=== PATIENT | female | born 1975 | race Caucasian/White ===

== ENCOUNTER → 2018-05-02 15:00 | Outpatient (CLI) | payer OTHER, SELFPAY | DX: Z23 Encounter for immunization (principal) | CPT/HCPCS: 90471; 90686 ==

== ENCOUNTER → 2018-08-30 18:10 | Outpatient (REF) | payer OTHER, SELFPAY | LOC: LAB 18:10 | PROVIDERS: PCP Obstetrics & Gynecology; Visit Provider Otolaryngology | DX: H66.001 Acute suppurative otitis media without spontaneous rupture of ear drum, right ear (principal) | CPT/HCPCS: 87070; 87077; 87147; 87186; 87205 ==

== ENCOUNTER → 2019-05-24 10:15 | Outpatient (CLI) | payer OTHER, SELFPAY | PROVIDERS: PCP Obstetrics & Gynecology | DX: Z23 Encounter for immunization (principal) | CPT/HCPCS: 90471; 90686 ==

== ENCOUNTER → 2020-06-18 | Outpatient (CLI) | payer OTHER, SELFPAY | PROVIDERS: PCP Obstetrics & Gynecology; Referring Provider Internal Medicine; Visit Provider Internal Medicine | DX: Z23 Encounter for immunization (principal) | CPT/HCPCS: 90471; 90686 ==

== ENCOUNTER → 2020-07-11 11:14 | Outpatient (CLI) | payer OTHER, SELFPAY ==
[2020-07-11 11:39] LABS: COVID19 -Nasal RAPID Negative (Negative)
== END ==
PROVIDERS: PCP Obstetrics & Gynecology; Visit Provider Physician Assistant
DX: Z11.59 Encounter for screening for other viral diseases (principal)
CPT/HCPCS: 87635

== ENCOUNTER → 2020-07-17 15:51 | Outpatient (CLI) | payer OTHER, SELFPAY ==
[2020-07-17 16:26] LABS: COVID19 -Nasal RAPID Negative (Negative)
== END ==
PROVIDERS: PCP Obstetrics & Gynecology; Visit Provider Physician Assistant
DX: Z11.59 Encounter for screening for other viral diseases (principal)
CPT/HCPCS: 87635

== ENCOUNTER → 2020-10-04 15:45 | Outpatient (CLI) | payer OTHER, SELFPAY ==
[2020-10-04] MEDS: COVID-19 VACC #1, MRNA(MOD) 100 MCG/0.5 ML VIAL IM (15:57)
== END ==
PROVIDERS: PCP Obstetrics & Gynecology; Visit Provider Internal Medicine
DX: Z23 Encounter for immunization (principal)
CPT/HCPCS: 0011A; 91301

== ENCOUNTER → 2020-11-01 11:01 | Outpatient (CLI) | payer OTHER, SELFPAY ==
[2020-11-01] MEDS: COVID-19 VACC #2, MRNA(MOD) 100 MCG/0.5 ML VIAL IM (11:06)
== END ==
PROVIDERS: PCP Obstetrics & Gynecology; Visit Provider Internal Medicine
DX: Z23 Encounter for immunization (principal)
CPT/HCPCS: 0012A; 91301

== ENCOUNTER → 2021-06-17 16:09 | Outpatient (CLI) | payer OTHER, SELFPAY ==
--- NOTE | 2021-06-17 | DI.MG.S_ITS ---
BILATERAL DIGITAL SCREENING MAMMOGRAM 3D/2D WITH CAD: 06/17/2021 Comparison is made to exams dated: 11/25/2018 mammogram, 11/18/2018 mammogram, and 09/10/2014 mammogram - outside location. There are scattered fibroglandular elements in both breasts. Current study was also evaluated with a Computer Aided Detection (CAD) system. No significant masses, calcifications, or other findings are seen in either breast. There has been no significant interval change. IMPRESSION: NEGATIVE There is no mammographic evidence of malignancy. A 1 year screening mammogram is recommended. This exam was interpreted at Station ID: [id number]. NOTE: For mammograms, a report in lay terms will be sent to the patient. Approximately 15% of breast malignancies will not be visualized mammographically. In the management of a palpable breast mass, a negative mammogram must not discourage biopsy of a clinically suspicious lesion. Electronically Signed By: Ba magana/elvia:06/17/2021 16:40:55 letter sent: Normal Exam ACR BI-RADS Category 1: Negative [id number]
== END ==
PROVIDERS: PCP Student in an Organized Health Care Education/Training Program; Referring Provider Student in an Organized Health Care Education/Training Program; Visit Provider Student in an Organized Health Care Education/Training Program
DX: Z12.31 Encounter for screening mammogram for malignant neoplasm of breast (principal)
CPT/HCPCS: 77063; 77067

== ENCOUNTER → 2022-04-15 16:22 | Outpatient (CLI) | payer OTHER, SELFPAY ==
[2022-04-15 18:31] LABS: COVID19 -Nasal RAPID Negative (Negative)
== END ==
PROVIDERS: PCP Student in an Organized Health Care Education/Training Program; Visit Provider Obstetrics & Gynecology
DX: Z01.812 Encounter for preprocedural laboratory examination (principal); Z20.822 Contact with and (suspected) exposure to COVID-19
CPT/HCPCS: 87635

== ENCOUNTER 2022-04-16 12:13 | Day surgery (SDC) | payer OTHER, SELFPAY ==
[2022-04-15 12:30] VITALS: BMI 47.5
[2022-04-16] VITALS (7 sets, daily range): BP systolic 144–161; BP diastolic 65–101; PULSE 79–91; RESP 15–20; TEMP 36.2–36.7; O2SAT 94–98; BMI 47.5
[2022-04-16] MEDS: FAMOTIDINE 20 MG/2 ML VIAL IV (13:22)
[2022-04-16] MEDS: APREPITANT 40 MG CAPSULE PO (13:22)
--- NOTE | 2022-04-16 13:25 | PM.PREOP ---
Pre-operative Note COVID-19 COVID-19 status: Negative Result date/Date tested (Pos, Neg/Pending): 04/15/22 Criteria for continued procedure: Non-surgical alternatives not available or appropriate per current SOC Interval Note History & Physical reviewed/Exam performed by Physician: Yes Changes to H&P: No
[2022-04-16] MEDS: MIDAZOLAM 2 MG/2 ML VIAL IV (13:34)
[2022-04-16] MEDS: CEFAZOLIN 3 GM IN 0.9 % NACL 3 GM/100 ML PLAST..BAG IV (14:12)
[2022-04-16] MEDS: BUPIVACAINE 0.5% W/ EPI (PF) 30 ML VIAL INJ (14:12)
--- NOTE | 2022-04-16 14:34 | SUR.OPER ---
Lithotomy on padded OR bed. [place] Pad Positioner under torso. Head on pillow, arms padded and tucked at sides. Legs secured in padded yellow fins stirrups.
--- NOTE | 2022-04-16 15:03 | PC.NURSE ---
Day shift: Pt not on AC unit at this time.
--- NOTE | 2022-04-16 15:13 | P.OP_ITS ---
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 Patient experienced menarche at age 11 and has had 3 term pregnancies with all 3 deliveries by section.? Patient had a bilateral tubal ligation with her 3rd and in 2016 underwent endometrial ablation with a D&C at that time and although no records are available the patient knows for certain that the D&C pathology was negative for abnormalities.? Patient continues to have relatively regular menses every 45 days or so but has 7-10 days of cramping prior to her menses followed by anywhere from 7-14 days of bleeding.? As result she has experienced overflows and accidents which have made it virtually impossible at times for her to leave the house while she is on her cycle.? Patient had a Mirena IUD placed at the time of her ablation in 2016 but it was removed by her primary care provider in approximately 2019 due to pain and shortly after removal, her bleeding became progressively more unpredictable and heavy.? Her most recent Pap was in 2020 and she has has had normal Paps throughout her reproductive life.? Patient had pelvic US performed at [facility] 01/27/2022 which shows the uterus to be slightly enlarged measuring 13.9 x 5.7 x 5.7 cm with a 14 mm endometrial stripe.? The ovaries are both normal in size with the right measuring 3.7 x 3.2 x 3.3 cm and the left measuring 2.8 x 2.1 x 2.4 cm.? Patient denies intermenstrual spotting/bleeding or postcoital bleeding.? Preoperative endometrial sampling is not possible due to post ablation scarring and cervical stenosis. After consideration of all options, the patient has decided to proceed with laparoscopic supracervical hysterectomy with bilateral salpingectomy and she presents today for her scheduled surgery. Surgeon: Willam Power Certified Legal Secretary Specialist: Imelda Motta Anesthesia Type: General Operative Notes Findings: The upper abdomen is unremarkable to laparoscopic inspection. The appendix appears normal. The uterus is somewhat elongated and at least the upper half of the anterior surface of the uterus is densely adherent to the abdominal wall and precludes visualization of the anterior cul-de-sac. The distal right fallopian tube is visible and adherent to the pelvic sidewall along with the ovary on right side. A Filshie clip on the right fallopian tube is visible. Adhesions obscure much of the left adnexa but the ovary appears to be normal where as the fallopian tube is adherent to intra-abdominal adipose and difficult to visualize completely. The posterior cul-de-sac appears to be free of adhesions. Closure Type: primary Specimen(s): none Estimated blood loss (mL): 10 Blood products transfused: none Procedure in detail: With the patient under satisfactory general anesthesia in the modified dorsal lithotomy position the perineum vagina and abdomen were prepped and draped for laparoscopy and supracervical hysterectomy. A pre-surgical safety time-out was then taken in accordance with [facility] Main OR protocols. A bivalve speculum was then placed in the vagina and the anterior lip of the cervix was grasped with a single-tooth tenaculum. The endocervical canal was then slowly dilated to 4 mm and a Zumi manipulator was placed through the endocervical canal up into the uterine cavity and secured. The speculum was then removed from the vagina and the single-tooth tenaculum removed from the cervix. The umbilicus was then infiltrated with 0.5% Marcaine with epinephrine and a 1 cm vertical umbilical incision was made in the skin of the inferior aspect of the umbilicus. A Veress needle was then used to insufflate the abdomen with carbon dioxide once insufflated, a 5 mm trocar and sleeve was placed through the umbilical incision. The presence of the laparoscopic sleeve inside the abdomen was confirmed by laparoscopic visualization intra-abdominal viscera. A 2nd and 3rd 5 mm laparoscopic port was placed in the left and right mid quadrants using a similar technique. Using a 3 puncture technique, the pelvis and abdomen were carefully inspected with the findings as noted above. Due to the dense adhesions involving the uterus to the anterior abdominal wall and an inability to safely dissect the uterus from the anterior abdominal wall with available laparoscopic equipment, it quickly became evident that to safely and successfully perform hysterectomy on this patient, laparotomy or robotic techniques would be necessary. Based on the findings at the time of surgery, robotic surgery was deemed feasible and the best option for this patient but unfortunately such resources are not available at this institution as decision was made to abort the planned hysterectomy in favor of referral of the patient to etc. with advanced robotic capabilities. Accordingly the findings were photographically documented and the procedure terminated by venting of the pneumoperitoneum and removal of the laparoscopic sleeves from the abdominal cavity. The laparoscopic port incisions were then closed with 4-0 Monocryl using inverted interrupted stitches appropriate dressings are applied. The patient was awakened from general anesthesia and transferred to the PACU for a period of observation and recovery after having tolerated the procedure well. Complications: none Post-operative Condition: stable Disposition: PACU Plan for aftercare: Routine postoperative care. Patient will be scheduled for postop follow-up appointment in 2 weeks. Patient will be referred to [facility] for robotic hysterectomy necessitated by the dense adhesions involving the uterus and the anterior abdominal wall.
[2022-04-16] MEDS: LACTATED RINGERS 1,000 ML 100 ML IV (16:03)
[2022-04-16] MEDS: ONDANSETRON 4 MG/2 ML INJ IV (16:10)
--- NOTE | 2022-04-16 16:31 | SUR.PHASEII ---
Pt had some nausea, treated [facility] IV Zofran at 1610. aromatherapy queezy placvced with positive relief. Pt declined pain meds. updated. Pt meets criteria for discharge. IV removed without difficulty.
== END 2022-04-16 16:25 | disposition home or self-care (01) ==
LOC: OR 12:15 → AC 15:13
PROVIDERS: PCP Student in an Organized Health Care Education/Training Program; Referring Provider Obstetrics & Gynecology; Visit Provider Obstetrics & Gynecology
PROC: 0UT94ZL Resection of Uterus, Supracervical, Percutaneous Endoscopic Approach (ICD-10-PCS; principal; 2022-04-16 13:30)
DX: N92.1 Excessive and frequent menstruation with irregular cycle (principal); N99.85 Post endometrial ablation syndrome; N73.6 Female pelvic peritoneal adhesions (postinfective); E66.9 Obesity, unspecified; F41.9 Anxiety disorder, unspecified; E03.9 Hypothyroidism, unspecified; Z68.42 Body mass index [BMI] 45.0-49.9, adult
CPT/HCPCS: 49320; J0690; J1100; J1885; J2250; J2405; J3010; J8501

== ENCOUNTER → 2022-07-14 16:25 | Outpatient (CLI) | payer OTHER, SELFPAY ==
--- NOTE | 2022-07-14 | DI.RAD.S_ITS ---
PROCEDURE: XR CHEST 2V INDICATIONS: COUGH TECHNIQUE: 2 views of the chest were acquired. COMPARISON: None. FINDINGS: Surgical changes and devices: None. Lungs and pleura: Lungs are clear. No pleural effusions or pneumothorax. Mediastinum: Mediastinal contours are normal. Heart size is normal. Bones and chest wall: No suspicious bony abnormalities. Soft tissues appear unremarkable. IMPRESSION: No acute process. Dictated by: Teodora Zhao M.D. on 07/14/2022 at 16:55 Approved by: Teodora Zhao M.D. on 07/14/2022 at 16:56
== END ==
PROVIDERS: PCP Student in an Organized Health Care Education/Training Program; Referring Provider Registered Nurse; Visit Provider Registered Nurse
DX: U07.1 COVID-19 (principal); J06.9 Acute upper respiratory infection, unspecified; R05.9 Cough, unspecified
CPT/HCPCS: 0241U; 71046

== ENCOUNTER → 2022-07-14 22:17 | Outpatient (ROUT) | payer OTHER, SELFPAY ==
[2022-07-15 00:26] LABS: Influenza A - CEPHEID Flu A NEGATIVE (NEGATIVE); Influenza B - CEPHEID Flu B NEGATIVE (NEGATIVE); Respiratory Syncytial Virus Negative (Negative)
[2022-07-15 00:56] LABS: COVID-19 CEPHEID 4-PLEX PCR POSITIVE (Negative)
== END ==
PROVIDERS: PCP Student in an Organized Health Care Education/Training Program; Visit Provider Registered Nurse
DX: U07.1 COVID-19 (principal); J06.9 Acute upper respiratory infection, unspecified; R05.9 Cough, unspecified
CPT/HCPCS: 0241U

== ENCOUNTER → 2023-05-26 08:03 | Outpatient (CLI) | payer OTHER, SELFPAY ==
--- NOTE | 2023-05-26 | DI.MRI.S_ITS ---
PROCEDURE: MR HEAD/BRAIN WO/W CON INDICATIONS: MIGRAINE W/AURA AND W/O STATUS MIGRAINOSUS TECHNIQUE: Noncontrast axial T1 spin echo, axial T2 fast spin echo, sagittal and axial FLAIR, coronal T2 fast spin echo, axial gradient echo, axial diffusion and ADC through the brain. After the administration of contrast, axial and coronal and sagittal 3D VIBE or T1 spin echo with fat saturation through the brain. COMPARISON: None. FINDINGS: Image quality: Diagnostic, with note made of motion artifact. CSF Spaces: Basal cisterns are patent. No extra-axial fluid collections. Ventricles are normal in size and shape. Brain: No midline shift. No intracranial bleeds or masses. No abnormal intracranial enhancement. The brainstem appears normal. Diffusion-weighted images demonstrate no acute ischemic insults. No chronic ischemic insults. Normal intravascular flow voids are present. Skull and face: Calvarial marrow is normal in signal. Orbits appear normal. Sinuses: Sinuses and mastoids appear clear. IMPRESSION: Unremarkable intracranial study, without an imaging explanation found for the patient's presenting history of headache. No masses or abnormal enhancement can be seen. Dictated by: Gavino Valverde M.D. on 05/26/2023 at 10:11 Approved by: Gavino Valverde M.D. on 05/26/2023 at 10:12
== END ==
PROVIDERS: PCP Registered Nurse; Referring Provider Registered Nurse; Visit Provider Registered Nurse
DX: G43.109 Migraine with aura, not intractable, without status migrainosus (principal); R41.89 Other symptoms and signs involving cognitive functions and awareness
CPT/HCPCS: 70553

== ENCOUNTER → 2024-10-10 10:49 | Outpatient (CLI) | payer OTHER, SELFPAY ==
--- NOTE | 2024-11-08 16:52 | DIAB.FU ---
Diabetes Education Class Series: Diabetes and Nutrition Name: Dyan Carmona Date: 10/10/24 Time: [id number] Dyan presents for initial Dm ed class 1 of 3. Reports working on nutrition changes. Trying to meal prep. Class topics covered: Debunk nutrition myths and discuss how to sustain healthy eating long-term through moderation and variety Define macronutrients and determine their impact on blood sugars Discuss macronutrient pairing, Plate Method, and carb counting Review general recommendations for carbohydrates Practice label reading Discuss the role of fiber in diabetes and provide examples of sources Review heart health nutrition: fats, fiber, and sodium Determine recommendations for grocery shopping and eating out Discuss alcohol recommendations Review the role of substitute sugars in diabetes management Set SMART goals Goal Set: Limit eating out to 1x per week Follow-up: Diabetes Physiology and Medication Class in one week Kadie Kent RDN, [facility] Certified Diabetes Care and Trust Operations Assistant P: [phone] Thank you for this referral
== END ==
PROVIDERS: PCP Registered Nurse; Referring Provider Registered Nurse
DX: E11.9 Type 2 diabetes mellitus without complications (principal); Z71.3 Dietary counseling and surveillance
CPT/HCPCS: G0109

== ENCOUNTER → 2024-10-17 09:41 | Outpatient (CLI) | payer OTHER, SELFPAY ==
--- NOTE | 2024-11-08 16:59 | DIAB.FU ---
Diabetes Education Class Series: Diabetes Physiology and Medications Name: Dyan Carmona Date: 10/17/2024 Time: [id number] Nata presents for class 2 of 3. Reports she has been eating out less and trying to grocery shop more consistently. Class topics covered: ? Diabetes pathophysiology ? Discuss different types of diabetes ? Review criteria for diagnosing diabetes ? Review HgA1c measurement and associated blood sugars ? Review blood sugar monitoring safety, technique, and goals ? Discuss ways to reduce complications associated with diabetes, includes microvascular and macrovascular complications ? Review diabetes medications types, action, and side effects ? Health care visits recommended for people with T2DM ? Immunization recommended for people with T2DM ? SMART goals review Follow-up: Diabetes Lifestyle and Ongoing Support Class next week Kadie Kent RDN, [facility] Certified Diabetes Care and Global Compensation Manager P: [phone] Thank you for this referral
== END ==
PROVIDERS: PCP Registered Nurse; Referring Provider Registered Nurse
DX: E11.9 Type 2 diabetes mellitus without complications (principal); Z71.3 Dietary counseling and surveillance
CPT/HCPCS: G0108

== ENCOUNTER → 2024-12-12 15:53 | Outpatient (CLI) | payer OTHER, SELFPAY ==
--- NOTE | 2024-12-15 14:12 | DIAB.MNTFU ---
Follow-up Diabetes Medical Nutrition Therapy Assessment Name: Dyan Carmona Date: 12/12/24 Time:4pm Dx: Type II Diabetes Provider: Leona Veras Presenting for f/u after group classes. Pt has CGM now covered with insurance. Had what is presumed to be a faulty CGM resulting in continuously low BG <55 despite drinking juice and glucose tabs. Pt then bought BG meter and BG was normal. Replaced with new CGM. This led to concerns over hypoglycemia. Sometimes has to work through long surgical case without breaks. Still follows with other dietitian online 2x/month now. Helps with meal choices. Diet Recall: B-eggs and toast, has stopped drinking coffee some days to reduce creamer, doesn't like coffee without lots of creamer, other subs didn't work L-cauliflower pizza and salad D-protein choice, serving of carbs (1c) and veggies x2 servings Anthropometrics: Ht: - Wt: 259 lb per pt Weight history: 273 lb in Jun 2024 (-5% weight loss in 6 months) Physical Activity: none yet Self-Monitoring Blood Glucose: CGM Avg BG is 118, FBG ranges between 105-85, postprandial majority under 180 Diabetes Medications: Ozempic 1 mg Metformin XR 1000 mg 1x/d Pertinent Labs: 5.8% A1c most recently, 6.7% A1c%, 306 TG, 33 HDL in Jun 2024 Past Medical History: (Last Updated 04/15/22 @ 12:31 by Sandy Navarrete RN) Anxiety Arthritis Thyroid disease Nutrition Rx: Carbohydrates: Meal: 30-45 g Snack: 15-30 g Nutrition Diagnosis: (improving)Food and nutrition related knowledge deficit r/t new dx aeb pt reporting wanting to increase knowledge on topic Physical inactivity r/t stages of change aeb limited intentional activity Intervention: Reviewed CGM data and trends and correlated with food intakes Can call dexcom to ask for another sensor if sensor is faulty Discussed when to use BG meter vs CGM Discussed rule of 15s for lows Discussed barriers for activity and goals Goals: walking 20 minutes 4x/wk on walking pad or outside at moderate intensity level Follow-up: RD follow-up in 3 months. LADAN George, RD Registered Dietitian P: [phone] Thank you for this referral
== END ==
LOC: DIET 15:54
PROVIDERS: PCP Registered Nurse; Referring Provider Registered Nurse
DX: E11.9 Type 2 diabetes mellitus without complications (principal); Z71.3 Dietary counseling and surveillance; Z79.84 Long term (current) use of oral hypoglycemic drugs; Z79.85 Long-term (current) use of injectable non-insulin antidiabetic drugs
CPT/HCPCS: 97803